=== PATIENT | male | born 1940 | race African-American/Black ===

== ENCOUNTER 2025-06-16 09:38 | Inpatient (IN) | payer MEDICARE, OTHER ==
[~2025-06-16] VITALS: Ht 167.6 cm; Wt 70.4 kg
[2025-06-16 09:41] VITALS: O2SAT 98
[2025-06-16] MEDS: PANTOPRAZOLE SODIUM 40 MG/VIAL IV ONE (10:22)
[2025-06-16] MEDS: SODIUM CHLORIDE 0.9% 1,000 ML IV ONE (10:22)
[2025-06-16] MEDS: CALCIUM GLUCONATE 1GM PREMIX 50 ML IV ONE (10:22)
[2025-06-16] MEDS: ONDANSETRON HCL 4MG/2ML INJ IV ONE (10:22)
[2025-06-16 10:38] LABS: BASOPHILS % 0.2 % (0.0-2.0); EOSINOPHILS % 0.1 % (0.0-5.0); HEMATOCRIT. 31.1 % (42.0-52.0); HEMOGLOBIN. 9.8 g/dL (14.0-18.0); LYMPHOCYTES % 8.6 % (20.0-50.0); MEAN PLATELET VOLUME 10.9 fl (7.4-10.4); MONOCYTES % 5.3 % (2.0-8.0); NEUTROPHILS % 85.8 % (40.0-76.0); PLATELET 145 x1000/uL (130-400); RED BLOOD CELL COUNT 4.43 mill/uL (4.7-6.1); RED CELL DISTRIBUTION WIDTH 14.7 % (11.6-14.6)
[2025-06-16 10:53] LABS: CREATININE 2.0 mg/dL (0.6-1.3); TROPONIN I HIGH SENSITIVITY 8 ng/L (3.0-53); UREA NITROGEN BLOOD 36 mg/dL (9-23)
[2025-06-16 10:55] LABS: ASPARTATE AMINOTRANSFERASE 19 IU/L (<34); BILIRUBIN DIRECT 0.1 mg/dL (<=3.0)
[2025-06-16 10:56] LABS: BILIRUBIN TOTAL 0.5 mg/dL (0.1-1.0); PROTEIN TOTAL 7.1 g/dL (6.0-8.3)
[2025-06-16 12:32] LABS: INR 1.1
[2025-06-16 12:38] LABS: TROPONIN I HIGH SENSITIVITY 11 ng/L (3.0-53)
[2025-06-16] MEDS ORDERED: IOHEXOL-350 100 ML BOTTLE ONE (14:03)
[2025-06-16 14:30] VITALS: BP 167/64; PULSE 67; RESP 16; TEMP 37.4; O2SAT 98
[2025-06-16 14:40] VITALS: BP 167/64; PULSE 67; RESP 16; TEMP 37.4744
[2025-06-16 16:00] VITALS: BP 162/88; PULSE 74; RESP 18; TEMP 37; O2SAT 99
[2025-06-16] MEDS ORDERED: ONDANSETRON HCL 4MG/2ML INJ IV PRN (16:15)
[2025-06-16] MEDS: POTASSIUM CHLORIDE 20MEQ TABLET SR PO SCH (17:32)
[2025-06-16] MEDS: AMLODIPINE 10MG TABLET PO SCH (17:32)
[2025-06-16] MEDS ORDERED: AMLO5TAB88 MT (18:33)
[2025-06-16] MEDS ORDERED: LIDO700A30 TP (18:33)
[2025-06-16 20:00] VITALS: BP 125/52; PULSE 80; RESP 18; TEMP 36; O2SAT 98
[2025-06-16] MEDS: PANTOPRAZOLE SODIUM 40 MG/VIAL IV SCH (21:00)
[2025-06-17] VITALS: BP 148/56; PULSE 51; RESP 18; TEMP 37; O2SAT 99
[2025-06-17 04:00] VITALS: BP 147/50; PULSE 42; RESP 18; TEMP 36.9; O2SAT 100
[2025-06-17 07:16] LABS: BASOPHILS % 0.3 % (0.0-2.0); EOSINOPHILS % 0.8 % (0.0-5.0); HEMATOCRIT. 28.3 % (42.0-52.0); HEMOGLOBIN. 9.0 g/dL (14.0-18.0); LYMPHOCYTES % 23.2 % (20.0-50.0); MEAN PLATELET VOLUME 11.5 fl (7.4-10.4); MONOCYTES % 7.6 % (2.0-8.0); NEUTROPHILS % 68.1 % (40.0-76.0); PLATELET 129 x1000/uL (130-400); RED BLOOD CELL COUNT 4.01 mill/uL (4.7-6.1); RED CELL DISTRIBUTION WIDTH 14.9 % (11.6-14.6)
[2025-06-17 07:39] LABS: UREA NITROGEN BLOOD 23 mg/dL (9-23)
[2025-06-17 07:45] LABS: CREATININE 1.3 mg/dL (0.6-1.3)
[2025-06-17 08:00] VITALS: BP 178/52; PULSE 53; RESP 18; TEMP 36.5; O2SAT 100
[2025-06-17] MEDS: HYDRALAZINE HCL 50MG TABLET PO SCH (11:17)
[2025-06-17 12:00] VITALS: BP 140/51; PULSE 52; RESP 17; TEMP 36.2; O2SAT 98
[2025-06-17 16:00] VITALS: BP 129/50; PULSE 56; RESP 18; TEMP 36.5; O2SAT 97
[2025-06-17] MEDS: SUCRALFATE 1G TABLET PO SCH (17:39)
[2025-06-17 18:11] LABS: CLARITY URINE CLEAR (CLEAR); COLOR URINE YELLOW (YELLOW); GLUCOSE URINE TRACE (NEGATIVE); KETONES URINE NEGATIVE (NEGATIVE); LEUKOCYTE ESTERASE URINE NEGATIVE (NEGATIVE); NITRITE URINE NEGATIVE (NEGATIVE); OCCULT BLOOD URINE NEGATIVE (NEGATIVE); PH URINE 5.5 (4.5-8.0); PROTEIN URINE TRACE (NEGATIVE); SPECIFIC GRAVITY URINE 1.027 (1.005-1.030); UROBILINOGEN URINE 0.2 E.U./dL (0.2-1.0)
[2025-06-17 18:13] LABS: RBC URINE NONE SEEN /hpf (0-2); SQUAMOUS EPITHELIAL CELL URINE RARE /lpf (RARE/1+); WBC URINE 0-2 /hpf (0-2)
[2025-06-17 18:14] LABS: BACTERIA URINE NONE SEEN
[2025-06-17 20:00] VITALS: BP 177/59; PULSE 58; RESP 19; TEMP 36.9; O2SAT 99
[2025-06-18] VITALS (7 sets, daily range): BP systolic 128–183; BP diastolic 54–63; PULSE 46–65; RESP 17–19; TEMP 36.3–36.8; O2SAT 98–100
[2025-06-18] MEDS: CLONIDINE 0.1MG TABLET PO PRN (05:50)
[2025-06-18] MEDS: POLYETHYLENE GLYCOL 3350 (17GM) 1 DOSE PACK PO SCH (08:36)
[2025-06-18] MEDS: BISACODYL 5MG TABLET PO SCH (08:36)
[2025-06-18] MEDS ORDERED: HYDRALAZINE 20MG/ML VIAL IV NR (12:00)
[2025-06-18] MEDS: FERROUS SULFATE 325MG TABLET PO SCH (12:30)
[2025-06-18] MEDS ORDERED: TAMS-54 PO ×2 (12:35→12:36)
[2025-06-18] MEDS ORDERED: LOSA25TA26 PO (14:43)
[2025-06-18] MEDS ORDERED: FAMO20TA8 PO (14:46)
[2025-06-18] MEDS ORDERED: NIFE-33 PO (14:47)
[2025-06-18] MEDS ORDERED: GABA-1180 PO (14:48)
[2025-06-18 15:09] LABS: FOLIC ACID (FOLATE) SERUM > 20.00 ng/mL (>5.38); VITAMIN B12 SERUM 1137 pg/mL (211-911)
[2025-06-18] MEDS ORDERED: [UNRECOGNIZED DRUG - CODE] (15:09)
[2025-06-18] MEDS ORDERED: SUCR1TAB30 PO (15:11)
[2025-06-18] MEDS: HYDRALAZINE HCL 100MG TABLET PO SCH (21:07)
[2025-06-19] VITALS: BP 141/43; PULSE 50; RESP 21; TEMP 36.6; O2SAT 98
[2025-06-19 04:00] VITALS: BP 153/53; PULSE 50; RESP 21; TEMP 36.1; O2SAT 98
[2025-06-19 08:00] VITALS: BP 166/70; PULSE 55; RESP 16; TEMP 36.6; O2SAT 97
[2025-06-19] MEDS ORDERED: PROT40 MT (09:36)
[2025-06-19] MEDS ORDERED: SENN-371 MT (09:36)
[2025-06-19] MEDS ORDERED: FERR-71 MT (09:36)
[2025-06-19] MEDS ORDERED: SUCR1TAB30 MT (09:36)
[2025-06-19] MEDS ORDERED: AMLO10TA80 MT (09:36)
[2025-06-19 12:00] VITALS: BP 115/46; PULSE 61; RESP 18; TEMP 36.4; O2SAT 99
[2025-06-19 16:00] VITALS: BP 109/49; PULSE 55; RESP 17; TEMP 36.3; O2SAT 98
[2025-06-19 20:00] VITALS: BP 130/54; PULSE 68; RESP 20; TEMP 36.7; O2SAT 99
[2025-06-20] VITALS: BP 139/66; PULSE 72; RESP 20; TEMP 36.8; O2SAT 100
[2025-06-20 04:00] VITALS: BP 137/50; PULSE 91; RESP 20; TEMP 36.6; O2SAT 99
[2025-06-20 06:11] VITALS: BP 137/50; PULSE 91; RESP 20; TEMP 97.8
[2025-06-20 12:00] VITALS: BP 131/81; PULSE 81; RESP 19; TEMP 36.4; O2SAT 100
== END 2025-06-20 09:21 | disposition home or self-care (01) | DRG 377 ==
LOC: ER 09:38 → 6WST 13:14 → EDBEDREQ 13:21 → ENRESERV 14:06
PROVIDERS: ADMIT Internal Medicine; ATTEND Internal Medicine
DX: K25.4 Chronic or unspecified gastric ulcer with hemorrhage (principal); N17.0 Acute kidney failure with tubular necrosis; D50.9 Iron deficiency anemia, unspecified; I10 Essential (primary) hypertension; K59.00 Constipation, unspecified; E78.5 Hyperlipidemia, unspecified; Z85.46 Personal history of malignant neoplasm of prostate; Z79.899 Other long term (current) drug therapy
CPT/HCPCS: 36415; 71045; 74174; 80048; 80076; 81003; 82270; 82607; 82728; 82746; 83036; 83540; 83550; 84484; 85014; 85018; 85025; 85044; 86850; 86900; 93970; 97162; 97530; 99291; A4606; J0610; J2405; J2470; J7030; Q9967

== ENCOUNTER 2025-06-29 16:48 | Inpatient (IN) | payer MEDICARE, OTHER ==
[~2025-06-29] VITALS: Ht 165.1 cm; Wt 69.4 kg
[~2025-06-29 16:48] MED LIST: AMLO10TA80 MT; AMLO5TAB88 MT; FERR-71 MT; GABA-1180 PO; LIDO700A30 TP; LOSA25TA26 PO; NIFE-33 PO; PROT40 MT; SENN-371 MT; SUCR1TAB30 MT; TAMS-54 PO; [UNRECOGNIZED DRUG - CODE]
[2025-06-29 17:05] VITALS: O2SAT 98
[2025-06-29] MEDS: MORPHINE SULFATE 4 MG/ML INJ (FOR IV/IM USE) IV ONE (18:14)
[2025-06-29] MEDS: SODIUM CHLORIDE 0.9% 1,000 ML IV ONE (18:14)
[2025-06-29] MEDS: ONDANSETRON HCL 4MG/2ML INJ IV ONE (18:14)
[2025-06-29 18:34] LABS: HEMATOCRIT. 32.9 % (42.0-52.0); HEMOGLOBIN. 10.4 g/dL (14.0-18.0); MEAN PLATELET VOLUME 11.2 fl (7.4-10.4); PLATELET 165 x1000/uL (130-400); RED BLOOD CELL COUNT 4.72 mill/uL (4.7-6.1); RED CELL DISTRIBUTION WIDTH 14.3 % (11.6-14.6)
[2025-06-29 18:48] LABS: CREATININE 1.5 mg/dL (0.6-1.3); TROPONIN I HIGH SENSITIVITY 5 ng/L (3.0-53); UREA NITROGEN BLOOD 26 mg/dL (9-23)
[2025-06-29 18:50] LABS: ASPARTATE AMINOTRANSFERASE 29 IU/L (<34); BILIRUBIN DIRECT 0.2 mg/dL (<=3.0); BILIRUBIN TOTAL 0.6 mg/dL (0.1-1.0); PROTEIN TOTAL 7.6 g/dL (6.0-8.3)
[2025-06-29 19:22] LABS: LYMPHOCYTES % MANUAL 8.0 % (20.0-50.0); MONOCYTES % MANUAL 3.0 % (2.0-8.0); NEUTROPHILS % MANUAL 89.0 % (45.0-75.0); PLATELET ESTIMATE NORMAL
[2025-06-29] MEDS: PANTOPRAZOLE SODIUM 40 MG/VIAL IV ONE (20:03)
[2025-06-30 00:04] VITALS: BP 172/77; PULSE 61; RESP 18; TEMP 36.4736
[2025-06-30 04:00] VITALS: BP 142/54; PULSE 61; RESP 20; TEMP 36.3; O2SAT 100
[2025-06-30] MEDS ORDERED: CLONIDINE 0.1MG TABLET PO PRN (06:00)
[2025-06-30 08:00] VITALS: BP 156/59; PULSE 62; RESP 17; TEMP 37.1; O2SAT 97
[2025-06-30 11:04] LABS: BASOPHILS % 0.2 % (0.0-2.0); EOSINOPHILS % 0.6 % (0.0-5.0); HEMATOCRIT. 29.2 % (42.0-52.0); HEMOGLOBIN. 9.3 g/dL (14.0-18.0); LYMPHOCYTES % 16.5 % (20.0-50.0); MEAN PLATELET VOLUME 12.2 fl (7.4-10.4); MONOCYTES % 5.9 % (2.0-8.0); NEUTROPHILS % 76.8 % (40.0-76.0); PLATELET 138 x1000/uL (130-400); RED BLOOD CELL COUNT 4.11 mill/uL (4.7-6.1); RED CELL DISTRIBUTION WIDTH 14.7 % (11.6-14.6)
[2025-06-30 11:23] LABS: CREATININE 1.1 mg/dL (0.6-1.3)
[2025-06-30 11:24] LABS: UREA NITROGEN BLOOD 20 mg/dL (9-23)
[2025-06-30] MEDS: AMLODIPINE 5MG TABLET PO SCH (11:31)
[2025-06-30] MEDS: PANTOPRAZOLE SODIUM 40 MG/VIAL IV SCH (11:31)
[2025-06-30] MEDS: SODIUM CHLORIDE 0.9% 1,000 ML IV SCH (11:32)
[2025-06-30 12:00] VITALS: BP 178/65; PULSE 60; RESP 17; TEMP 36.8; O2SAT 99
[2025-06-30] MEDS ORDERED: BISACODYL 5MG TABLET PO NR (16:45)
[2025-06-30] MEDS ORDERED: MAGNESIUM/ALUMINUM HYDROXIDE/SIMETHICONE 30ML UDC PO PRN (16:45)
[2025-06-30 19:54] LABS: CLARITY URINE CLEAR (CLEAR); COLOR URINE YELLOW (YELLOW); GLUCOSE URINE NEGATIVE (NEGATIVE); KETONES URINE NEGATIVE (NEGATIVE); LEUKOCYTE ESTERASE URINE NEGATIVE (NEGATIVE); NITRITE URINE NEGATIVE (NEGATIVE); OCCULT BLOOD URINE NEGATIVE (NEGATIVE); PH URINE 5.5 (4.5-8.0); PROTEIN URINE NEGATIVE (NEGATIVE); SPECIFIC GRAVITY URINE 1.012 (1.005-1.030); UROBILINOGEN URINE 0.2 E.U./dL (0.2-1.0)
[2025-06-30 19:57] LABS: *AMPHETAMINES SCREEN URINE NEGATIVE (NEGATIVE); *BARBITURATES SCREEN URINE NEGATIVE (NEGATIVE); *BENZODIAZEPINES SCREEN URINE NEGATIVE (NEGATIVE); *COCAINE SCREEN URINE NEGATIVE (NEGATIVE); METHADONE URINE SCREEN NEGATIVE (NEGATIVE); OPIATES URINE SCREEN PRESUMPTIVE POSITIVE (NEGATIVE)
[2025-06-30 19:58] LABS: CANNABINOID URINE SCREEN NEGATIVE (NEGATIVE); ECSTASY MDMA SCREEN URINE NEGATIVE (NEGATIVE); PHENCYCLIDINE URINE SCREEN NEGATIVE (NEGATIVE)
[2025-06-30 20:00] VITALS: BP 196/66; PULSE 65; RESP 20; TEMP 36.9; O2SAT 98
[2025-06-30] MEDS: LOSARTAN 25 MG TABLET PO SCH (20:10)
[2025-06-30] MEDS: SUCRALFATE 1G TABLET PO SCH (20:10)
[2025-06-30] MEDS: SENNOSIDES 8.6MG TABLET PO SCH (20:12)
[2025-06-30 22:46] LABS: FOLIC ACID (FOLATE) SERUM > 20.00 ng/mL (>5.38); VITAMIN B12 SERUM 569 pg/mL (211-911)
[2025-07-01] VITALS: BP 162/62; PULSE 58; RESP 21; TEMP 36.9; O2SAT 98
[2025-07-01] MEDS: HYDRALAZINE 10 MG in SODIUM CHLORIDE 0.9% 49.5 ML IV PRN (03:49)
[2025-07-01 04:00] VITALS: BP 192/67; PULSE 55; RESP 20; TEMP 36.7; O2SAT 98
[2025-07-01 08:00] VITALS: BP 141/55; PULSE 53; RESP 18; TEMP 36.4; O2SAT 98
[2025-07-01 08:39] LABS: BASOPHILS % 0.2 % (0.0-2.0); EOSINOPHILS % 1.3 % (0.0-5.0); HEMATOCRIT. 29.8 % (42.0-52.0); HEMOGLOBIN. 9.4 g/dL (14.0-18.0); LYMPHOCYTES % 19.1 % (20.0-50.0); MEAN PLATELET VOLUME 11.4 fl (7.4-10.4); MONOCYTES % 6.7 % (2.0-8.0); NEUTROPHILS % 72.7 % (40.0-76.0); PLATELET 141 x1000/uL (130-400); RED BLOOD CELL COUNT 4.26 mill/uL (4.7-6.1); RED CELL DISTRIBUTION WIDTH 14.5 % (11.6-14.6)
[2025-07-01 08:52] LABS: INR 1.1
[2025-07-01 08:58] LABS: CREATININE 1.0 mg/dL (0.6-1.3); TROPONIN I HIGH SENSITIVITY 12 ng/L (3.0-53); UREA NITROGEN BLOOD 15 mg/dL (9-23)
[2025-07-01] MEDS ORDERED: LOSARTAN 25 MG TABLET PO SCH (09:00)
[2025-07-01] MEDS: POLYETHYLENE GLYCOL 3350 (17GM) 1 DOSE PACK PO SCH (09:00)
[2025-07-01] MEDS ORDERED: LEUPROLIDE XX SCH (09:30)
[2025-07-01] MEDS ORDERED: PANTOPRAZOLE 40MG DR TABLET PO SCH (09:30)
[2025-07-01] MEDS: NIFEDIPINE XL 30MG TAB PO SCH (10:00)
[2025-07-01] MEDS: LIDOCAINE 5% PATCH TOP SCH (10:33)
[2025-07-01] MEDS: TAMSULOSIN HCL 0.4MG SR CAPSULE PO SCH (10:33)
[2025-07-01] MEDS: FERROUS SULFATE 325MG TABLET PO SCH (10:33)
[2025-07-01 12:00] VITALS: BP 122/60; PULSE 60; RESP 18; TEMP 36.6; O2SAT 100
[2025-07-01] MEDS: POTASSIUM CHLORIDE 20MEQ TABLET SR PO NR (13:46)
[2025-07-01 15:18] VITALS: BP 122/60; PULSE 60; RESP 18; TEMP 97.9
[2025-07-01 16:00] VITALS: BP 123/50; PULSE 81; RESP 17; TEMP 37.1; O2SAT 100
[2025-07-01] MEDS ORDERED: GABAPENTIN 300MG CAPSULE PO SCH (21:00)
== END 2025-07-01 16:28 | disposition home or self-care (01) | DRG 384 ==
LOC: ER 16:48 → 6EST 19:19 → ENRESERV 22:06
PROVIDERS: ADMIT Internal Medicine; ATTEND Internal Medicine
DX: K27.9 Peptic ulcer, site unspecified, unspecified as acute or chronic, without hemorrhage or perforation (principal); N17.9 Acute kidney failure, unspecified; I10 Essential (primary) hypertension; D50.9 Iron deficiency anemia, unspecified; D72.829 Elevated white blood cell count, unspecified; E78.5 Hyperlipidemia, unspecified; Z88.0 Allergy status to penicillin; Z85.46 Personal history of malignant neoplasm of prostate; Z87.11 Personal history of peptic ulcer disease
CPT/HCPCS: 36415; 74018; 74176; 80048; 80076; 80305; 81003; 82607; 82728; 82746; 83540; 83550; 83735; 83880; 84425; 84484; 85025; 85044; 93005; 96361; 96374; 96375; 99285; J0360; J2270; J2405; J2470; J7030